=== PATIENT | female | born 1980 | race Caucasian/White ===

== ENCOUNTER → 2020-04-02 | Outpatient (CLI) | payer SELFPAY | LOC: CARD 09:52 | PROVIDERS: ATTEND Nurse Practitioner Family | DX: I25.3 Aneurysm of heart (principal); Z82.79 Family history of other congenital malformations, deformations and chromosomal abnormalities | CPT/HCPCS: 93306 ==

== ENCOUNTER → 2021-05-10 | Outpatient (CLI) | payer SELFPAY | LOC: CARD 15:00 | PROVIDERS: ATTEND Internal Medicine Cardiovascular Disease | DX: I25.3 Aneurysm of heart (principal) | CPT/HCPCS: 93306 ==